=== PATIENT | female | born 1970 | race Caucasian/White ===

== ENCOUNTER 2023-08-31 06:32 | Day surgery (SDC) | payer MEDICAID ==
[~2023-08-31] VITALS: Ht 170.2 cm; Wt 70.8 kg
[2023-08-31] MEDS ORDERED: SIMETHICONE 40 MG/0.6 ML ML ONE (06:38)
[2023-08-31] MEDS ORDERED: MIDAZOLAM HCL 5 MG/5 ML VIAL ONE (06:38)
[2023-08-31] MEDS ORDERED: MEPERIDINE 100 MG INJ. 100 MG/ML VIAL ONE (06:38)
[2023-08-31 06:56] LABS: HCG,QUAL RESULT NEGATIVE (NEGATIVE)
[2023-09-01 06:40] VITALS: BP_SYST 118; PULSE 79; RESP 18; TEMP 97.7; O2SAT 98
== END 2023-08-31 09:40 | disposition home or self-care (01) ==
LOC: SDS 06:32 → SMU 06:34 → SDS 09:40
PROVIDERS: ATTEND Internal Medicine Gastroenterology
DX: D64.9 Anemia, unspecified (principal); K59.09 Other constipation; D12.2 Benign neoplasm of ascending colon; D12.3 Benign neoplasm of transverse colon; K64.9 Unspecified hemorrhoids; E11.9 Type 2 diabetes mellitus without complications; E78.5 Hyperlipidemia, unspecified; Z79.84 Long term (current) use of oral hypoglycemic drugs; Z79.899 Other long term (current) drug therapy
CPT/HCPCS: 45385; 99152; 82962; 84703; 88305; 99153; G0378; J2250; J2175; 45382; 45384